=== PATIENT | female | born 1955 | race Caucasian/White ===

== ENCOUNTER → 2016-08-23 | Outpatient (CLI) | payer OTHER | END | disposition home or self-care (01) | LOC: CFH 10:14 → EDSTATUS 10:30 | PROVIDERS: ATTEND Nurse Practitioner Primary Care | DX: Z12.31 Encounter for screening mammogram for malignant neoplasm of breast (principal) | CPT/HCPCS: 77063; G0202 ==

== ENCOUNTER → 2016-09-19 | Outpatient (CLI) | payer OTHER | END | disposition home or self-care (01) | LOC: CFH 08:29 | DX: R13.10 Dysphagia, unspecified (principal) | CPT/HCPCS: 74220 ==

== ENCOUNTER 2019-06-14 09:51 | Emergency (ER) | payer OTHER ==
[~2019-06-14] VITALS: Ht 154.9 cm; Wt 61.0 kg
--- NOTE | 2019-06-14 10:17 | NUR ---
PT REPORTS RIGHT SIDED CHEST PAIN AND A COUGH FOR 2 WEEKS. PAIN WORSNES WHEN SHE COUGHS. MD IS BEDSIDE. BLANKET PROVIDED. CALL LIGHT WITHIN REACH
[2019-06-14] MEDS ORDERED: SERTRALINE (10:21)
[2019-06-14] MEDS ORDERED: CHOLESTROL MED (10:21)
[2019-06-14 10:22] VITALS: BP 127/76
[2019-06-14] MEDS ORDERED: KETOROLAC 30 MG/1 ML IM ONE (11:00)
[2019-06-14] MEDS ORDERED: KETOROLAC 60 MG/2 ML ONE (11:04)
== END 2019-06-14 11:48 | disposition home or self-care (01) ==
LOC: ED 11:37
DX: M94.0 Chondrocostal junction syndrome [Tietze] (principal); I10 Essential (primary) hypertension
CPT/HCPCS: 71046; 93005; 96372; 99283; J1885; 99284

== ENCOUNTER → 2020-07-28 | Outpatient (CLI) | payer OTHER ==
[~2020-07-28] MED LIST: CHOLESTROL MED; SERTRALINE
== END | disposition home or self-care (01) ==
LOC: CFH 09:02
PROVIDERS: ATTEND Family Medicine
DX: N63.25 Unspecified lump in the left breast, overlapping quadrants (principal)
CPT/HCPCS: 76642; 77061; 77065; G0279

== ENCOUNTER 2020-08-14 08:14 | Outpatient (CLI) | payer OTHER ==
[2020-08-14] MEDS ORDERED: LIDOCAINE 1%-EPI 1:100K, 20ML ONE (11:25)
[2020-08-14] MEDS ORDERED: LIDOCAINE 1%, 20ML ONE (11:25)
[2020-08-14] MEDS ORDERED: SODIUM BICARBONATE 4.0%, 5ML ONE (11:25)
== END 2020-08-14 23:59 | disposition home or self-care (01) ==
LOC: CFH 08:14
PROVIDERS: ATTEND Family Medicine
DX: N63.25 Unspecified lump in the left breast, overlapping quadrants (principal)
CPT/HCPCS: 19083; 77065; 88305; J3490